=== PATIENT | female | born 1995 | race Caucasian/White ===

== ENCOUNTER 2024-10-25 09:36 | Outpatient (CLI) | payer MEDICAID, SELFPAY ==
--- OUTSIDE RECORDS SUMMARY | 2024-10-25 09:48 | XMS_ITS | Clinical Summary ---
Author Organization [facility] Address [address] [place] [address] Care Team Providers Care Jigger Artisan Name Role Phone Armand Morales MD Primary Care Provider [phone] Allergies No known active allergies Medications Vyvanse 30 MG capsule Take 1 capsule (30 mg) by mouth 1 (one) time each day in the morning. 11/30/2022 Active gabapentin (Neurontin) 100 MG capsule Take 1 capsule (100 mg) by mouth 3 (three) times a day for 28 days. 84 capsule 02/23/2023 Active methocarbamol (Robaxin) 500 MG tablet Take 1.5 tablets (750 mg) by mouth every 6 (six) hours if needed for muscle spasms for up to 10 days. 50 tablet 02/23/2023 Active Active Problems Problem Noted Date Diagnosed Date Femoral anteversion of right lower extremity Social History Tobacco Use Types Packs/Day Years Used Date Smoking Tobacco: Former Cigarettes Q uit: 2020 Passive Smoke Exposure: Never Smokeless Tobacco: Never Tobacco Cessation:Counseling Given: Not Answered Alcohol Use Standard Drinks/Week Comments Never 0 (1 standard drink = 0.6 oz pur e alcohol) PHQ-2 Answer Date Recorded Patient Health Questionnaire-2 Score 0 02/03/2023 CAGE ASSESSMENT Answer Date Recorded Cage unable to access Not on file 02/22/2023 Cage max number of drinks Not on file 2022 Cage Beverages a week Not on file 02/22/2023 Have you ever felt you should CUT down on your d rinking? 0 02/22/2023 Have you been ANNOYED by people criticizing your drinking? 0 02/22/2023 Have you felt GUILTY about your drinking? 0 02/22/2023 Have you had a drink first t waldemar in the morning (EYE-ECONOMIC ADVISER) to steady your nerves or to get rid of a hangover? 0 02/22/2023 CAGE Questionnaire Score 0 023 PHQ-2A Answer Date Recorded Patient Health Questionnaire-2 Score 0 02/03/2023 Comments No Sex and Gender Information Value Date Recorded Sex Assigned at Not on file Legal Sex Female 6:23 PM EDT Gender Identity Not on file Sexual Orientation Not on file Last Filed Vital Signs Vital Sign Reading Time Taken Comments Blood Pressure 107/68 08/18/2023 9:15 AM EDT Pulse 111 08/18/2023 9:15 AM EDT Temperature 36.7 C (98 F) 08/18/2023 9:15 AM EDT Respiratory Rate 16 02/23/2023 11:41 AM EDT Oxygen Saturation 95% 08/18/2023 9:15 AM EDT Inhaled Oxygen Concentration - - Weight 54.4 kg (120 lb) 08/18/2023 9:15 AM EDT Height 157.5 cm (5' 2 ) 08/18/2023 9:15 AM EDT Body Mass Index 21.95 08/18/2023 9:15 AM EDT Plan of Treatment Health Maintenance Due Date Last Done Comments [facility]-/Child/Adol SDOH Screenings 1994 [facility]-Varicella Vaccines (1 of 2 - 13+ 2-dose series) 11/09/2007 HPV Vaccines (1 - 3-dose series) 2009 [facility]- SDOH Screenings 2012 [facility]-Adult SDOH Screenings 2012 [facility]-DTaP,Tdap,and Td Vaccine s (1 - Tdap) 2013 [facility]-Hepatitis B Vaccines (1 of 3 - 19+ 3-dose series) 2013 [facility]-Pap Smear 11/09/2015 [id number] Vaccine (1 - 20 24-25 season) 2024 [facility]-Depression Screening 02/04/2024 02/03/2023 [facility]-Influenza Vaccine (Seaso n Ended) 2025 [facility]-Zoster Vaccines (1 of 2) 2044 [facility]-HIV Screening Completed 09/13/2019 [facility]-Hepatitis C Screening Completed 09/13/2019 [facility]-HIB Vaccines Aged Out No longer e ligible based on patient's age to complete this topic [facility]-Hepatitis A Vaccines Aged Out No longer eligible based on patient's age to complete this topic [facility]-IPV Vaccines Aged Out No longer e ligible based on patient's age to complete this topic [facility]-Pneumococcal Vaccine: Pediatrics (0 to 5 Years) and At-Risk Patients (6 to 49 Years) Aged Out No long er eligible based on patient's age to complete this topic [facility]-Rotavirus Vaccines Aged Out No lo nger eligible based on patient's age to complete this topic Medical Devices Implanted Type Area Draughtsman Device Identifier Shelf Expiration Date Model / Serial / Lot Nail Femoral Left [id number] - [id number] Implanted:Qty: 1 on 02/22/2023 by Ghulam Pulido MD at [facility] Right: [employer] ([facility])-[id number] 12/14/2023 [id number] / / [id number] Screw 5.0mm Ti T2 Lock Full Thrd 40mm - [id number] Implanted:Qty: 1 on 02/22/2023 by Ghulam Pulido MD at [facility] Right: [employer] ([facility])-[id number] 01/13/2027 [id number] / / [id number] Screw 5.0mm T2 Lock Full Thrd 45mm - [id number] Implanted:Qty: 1 on 02/22/2023 by Ghulam Pulido MD at [facility] Right: [employer] ([facility])-[id number] 05/15/2027 [id number] / / [id number] Screw 5.0mm Lock Full Thrd 32.5mm - [id number] Implanted:Qty: 1 on 02/22/2023 by Ghulam Pulido MD at [facility] Right: [employer] ([facility])-[id number] 01/13/2027 [id number] / / [id number] Screw T2 Locking 37.5mm - [id number] Implanted:Qty: 1 on 02/22/2023 by Ghulam Pulido MD at [facility] Right: [employer] ([employer])-[id number] 05/15/2027 [id number] / / [id number] Procedures Procedure Name Priority Date/Time Associated Diagnosis Comments HEPATITIS C ANTIBODY W/REFLEX TO HCV QUANT PCR Routine 09/13/2019 9:23 AM EDT HIV 1/2 ANTIBODY/ANTIGEN SCREEN WITH REFLEX TO HIV I/II DIFFERENTIATION Routine 09/13/2019 9:23 AM EDT from Last 3 Months or Most Recently Relevant to Health Maintenance Results * HIV 1 & 2 Antibody/Antigen Screen (09/13/2019 9:23 AM EDT) HIV 1 Result NONREACTIVE Screening for HIV 1 and 2 antibodies is NONREACTIVE. No confirmatory testing is required. SUNQUEST 09/13/2019 9:23 AM EDT 09/13/2019 1:05 PM EDT us Hilda Koehler MD LAB BLOOD ORDERABLES Final Re sult Performing Organization Address [facility] de Phone Number SUNQUEST * Hepatitis C Antibody (09/13/2019 9:23 AM EDT) Hepatitis C Antibody NEGATIVE Reference Range: Negative SUNQUEST 09/13/2019 9:23 AM EDT 09/13/2019 1:05 PM EDT us Hilda Koehler MD LAB BLOOD ORDERABLES Final Re sult SUNQUEST from Last 3 Months or Most Recently Relevant to Health Maintenance Advance Directives * Full Code (Latest Code Status on File) Date Activated Date Inactivated Comments 02/22/2023 1:00 PM 02/23/2023 5:05 PM Question Answer Comments Patient has decision-making capacity? Yes Care Teams Jigger Artisan Relationship Specialty Start Date End Date Armand Morales MD [address] [place] [address] PCP - General Internal Medicine 11/04/22
[2024-10-25 10:26] LABS: Basophils % 0.3 % (0.1-2.0); Eosinophils # 0.1 Kmm3 (0.0-0.4); Eosinophils % 1.4 % (0.1-12.0); Hematocrit 31.1 % (37.0-47.0); Hemoglobin 10.3 g/dL (12.2-16.2); Immature Granulocytes # 0.01 10^3uL; Immature Granulocytes % 0.1 %; Lymphocytes # 1.7 K/mm3 (0.7-4.5); Lymphocytes % 23.3 % (10-50); Mean Corpuscular HGB Conc 33.1 g/dL (31.8-35.4); Mean Corpuscular Hemoglobin 30.4 pg (27.0-31.2); Mean Corpuscular Volume 91.7 fl (81-99); Mean Platelet Volume 9.3 fl (7.4-10.4); Monocytes # 0.5 K/mm3 (0.1-1.0); Monocytes % 6.7 % (1.7-9.3); Neutrophils % 68.2 % (37.0-80.0); Nucleated Red Blood Cells # 0 10^3/uL; Nucleated Red Blood Cells % 0 %; Platelet Count 261 K/mm3 (142-424); Red Blood Count 3.39 M/mm3 (4.20-5.40); Red Cell Distribution Width 12.4 % (11.5-17.5); Red Cell Distribution Width-SD 41.8 fL; White Blood Count 7.3 K/mm3 (4.8-10.8)
[2024-10-25 11:32] LABS: HCG,Quantitative 64084 mIU/ml (0-5.42); HIV Combo NEGATIVE (Negative)
[2024-10-25 11:40] LABS: Hepatitis C Ab Qual. W/ RFX NEGATIVE (Negative)
[2024-10-26 05:09] LABS: Hepatitis B Surface Antigen Negative (Negative)
[2024-10-26 08:32] LABS: Progesterone 17.9 ng/mL (.)
[2024-10-26 09:33] LABS: Rubella Antibodies, IgG 4.99 index (Immune >0.99)
[2024-10-26 09:48] LABS: RPR W/RFX Titers Nonreactive (Nonreactive)
== END 2024-10-25 23:59 | disposition home or self-care (01) ==
LOC: LAB 09:37
PROVIDERS: PCP Internal Medicine Adolescent Medicine; Visit Provider Obstetrics & Gynecology
DX: Z34.81 Encounter for supervision of other normal pregnancy, first trimester (principal)
CPT/HCPCS: 36415; 84144; 84702; 85025; 86592; 86762; 86803; 86850; 87340; 87389

== ENCOUNTER 2025-01-10 12:51 | Outpatient (CLI) | payer MEDICAID, SELFPAY ==
--- OUTSIDE RECORDS SUMMARY | 2022-10-19 04:52 | XMS_ITS | Continuity of Care Document ---
Author Organization [facility] Address [address] [place] [address] Phone Care Team Providers Care Side Stitcher Name Role Phone Ollie MSN, MANAGER COMMUNITY RELATIONS, Lorenza Unavailable Unavai lable Allergies, Adverse Reactions, Alerts Substance Reaction Status Criticality NO KNOWN ALLERGIES Active No Inform ation Medications Medication Instructions [...] Location Reason(s) For Visit Diagnoses Date Provider [facility], [address] [place] [address], [facility], tel:[phone] [facility] No Information Ollie Britt. [address] [place], [place], [id number], . tel:[phone] [facility], [address] [place] [address], [facility], tel:[phone] HR[facility] JORGETHIANA new to establish (chief complaint) Alcohol abuse counseling and surveillance of alcoholicMajor depressive disorder, recurrent, mildGeneralized anxiety disorderEncounter for screening examination for other mental health and behavioral disordersEncounter for screening for diseases of the blood and blood-forming organs and certain disorders involving the immune mechanismADHD predominantly inattentive typeEncounter for screening for other disorder Ollie Britt. [address], [place], [id number], [place]. tel:[phone] Family History Family Member Type Diagnosis Age At Onset No Information Payers Payer name Insurance type Covered republican ID Linda quinonez(s) [id number] Social History Type Description Quantity Date Captured Comments Alcohol Use Details Unknown Caffeine Use Details Unknown Tobacco Use Status No Information Smoking Status No Information Sex Female Sexual Orientation Straight or heterosexual September Gender Identity Female Chief Complaint And Reason For Visit No Information Plan Of Treatment Date Type Action Status Goal Tobacco Use Cessation Counse wolfgang. Due on due Goal Tobacco Use Screening. Due o n due Goal Unhealthy drug use screening due Goal HIV screen. Due on due Goal CMP. Due on due Goal Obtain Height, Weight, and B PA. Due on due Goal CBC. Due on due Goal Generalized Anxi ety Disorder - 7 (TIFFANIE-7). Due on due Goal Diabetes screening. Due on due Goal Drug Abuse Screening Test (D AST-10). Due on due Goal TSH. Due on due Goal Influenza vaccine. Due on due Goal Depression screening. Due on due Goal Vitamin D. Due on due Goal Follow up Plan f or abnormal BMI (Less than 18.5, greater than 25). Due on due Goal PAP. Due on due Goal Vitamin B12. Due on 023 due Goal Hepatitis C Screening. Due o n due Goal TSH. Due on due Goal Diabetes screening. Due on due Goal Hepatitis C Screening. Due o n due Goal Drug Abuse Screening Test (D AST-10). Due on due Goal Vitamin B12. Due on 023 due Goal Influenza vaccine. Due on due Goal Obtain Height, Weight, and B PA. Due on due Goal CBC. Due on [...] on due Goal Vitamin D. Due on due Goal Unhealthy drug use screening due Goal Tobacco Use Screening. Due o n due Referral Referred To: [facility] Internal Medicine- Dr. Obrien Ordered: Referrals: Internal Medicine. [facility] Internal Medicine- Dr. Obrien. Location: [facility] Evaluate and treat Appointment date/timeframe: 10/13/2022 ordered History Of Present Illness Encounter Date Complaint History Of Prese nt Illness new to establish German is a 26 yo female here today to establish care. She reports she has not seen a doctor in over 5 years. Previously seen in [place], Dr. Pan. She lives here now. She [...] if she chooses.OBGYN- last pap- she is [id number] full term boyperiods regularDeclines control at this time. Does not use condomsHx of vaginal wartsno other reported complicationsPlanning a possible next summerUK records reviewed via the [facility] portal- no Pap on file.Seasonal allergies- taking otc generic allergy medicationcongested today x 3 days no feversraw throatFasting labs collected todayUA okUDS okKaspbety ok. reports hypoglycemic epidsodes in the past, [...]
--- OUTSIDE RECORDS SUMMARY | 2025-01-10 12:53 | XMS_ITS | Clinical Summary ---
Author Organization [facility] Address [address] [place] [address] Care Team Providers Care Handyperson Name Role Phone System, Provider Not In Primary Care Provider Un available Allergies No known active allergies Medications Etonogestrel (IMPLANON SC) Inject into the skin Active clotrimazole (LOTRIMIN) 1 % cream Apply topically 2 (two) times daily Apply to affected area bid 25 g 6 Active Active Problems No known active problems Social History Tobacco Use Types Packs/Day Years Used Date Smoking Tobacco: Never Assessed Comments No Sex and Gender Information Value Date Recorded Sex Assigned at Not on file Legal Sex Female 10:14 AM EDT Gender Identity Not on file Sexual Orientation Not on file Last Filed Vital Signs Vital Sign Reading Time Taken Comments Blood Pressure 116/64 12/08/2015 10:34 AM EDT Pulse 74 12/08/2015 10:34 AM EDT Temperature 36.4 C (97.6 F) 12/08/2015 10:34 AM EDT Respiratory Rate 18 12/08/2015 10:34 AM EDT Oxygen Saturation 99% 12/08/2015 10:34 AM EDT Inhaled Oxygen Concentration - - Weight 65.1 kg (143 lb 9.6 oz) 12/08/2015 10:34 AM EDT Height 157.5 cm (5' 2 ) 12/08/2015 10:34 AM EDT Body Mass Index 26.26 12/08/2015 10:34 AM EDT Plan of Treatment Health Maintenance Due Date Last Done Comments Hepatitis B (HepB) Vaccine ( 1 of 3 - 19+ 3-dose series) 2013 Tdap/Td Vaccine >11 yo (1 - Tdap) 2013 Cervical Cancer Screening 11/09/2015 HPV Vaccine (1 - 3-dose SCDM series) 2021 Annual SDOH Screening 05/16/2024 Influenza Vaccine (#1) 2025 Haemophilus Influenzae Type B (Hib) Vaccine Aged Out No longer eligible b ased on patient's age to complete this topic Hepatitis A (HepA) Vaccine Aged Out N o longer eligible based on patient's age to complete this topic Meningococcal ACWY Aged Out No longer eligible based on patient's age to complete this topic Pneumococcal Vaccines 6-49 yo Risk Aged Out No longer eligible based on patient's age to complete this topic Polio (IPV) Aged Out No longer eligi ble based on patient's age to complete this topic Rotavirus (RV) Vaccine Aged Out No lo nger eligible based on patient's age to complete this topic Insurance [facility] ERON RUIZ [place] [id number] [facility] Care Teams Handyperson Relationship Specialty Start Date End Date System, Provider Not In PCP - General 12/08/15
--- OUTSIDE RECORDS SUMMARY | 2025-01-10 12:53 | XMS_ITS | Clinical Summary ---
Author Organization Healthcare Address [address] [place] [address] Care Team Providers Care Hunting And Fishing Guide Name Role Phone Armand Morales MD Primary Care Provider [phone] Allergies No known active allergies Medications Vyvanse [...] drink first t waldemar in the morning (EYE-PHOTO MACHINE OPERATOR) to steady your nerves or to get [...] of 2 - 13+ 2-dose series) 11/09/2007 [facility]- SDOH Screenings 2012 [facility]-Adult SDOH Screenings 2012 [facility]-DTaP,Tdap,and Td Vaccine s (1 - Tdap) 2013 [facility]-Hepatitis B Vaccines (1 of 3 - 19+ 3-dose series) 2013 [facility]-Pap Smear 11/09/2015 HPV Vaccines (1 - 3-dose SCD M series) 2021 [id number]-[id number]-30 Vaccine (1 - 20 24-25 season) 2024 [facility]-Depression Screening 02/04/2024 02/03/2023 [facility]-Cervical Cancer Screening 2024 [facility]-HPV/Cotest 2024 [facility]-Influenza Vaccine (#1) 2025 [facility]-Zoster Vaccines (1 of 2) 2044 [...] this topic Medical Devices Implanted Type Area Principal Bioinformatics Specialist Device Identifier Shelf Expiration Date Model / Serial / Lot Nail Femoral Left [id number] - [id number] Implanted:Qty: 1 on 02/22/2023 by Ghulam Pulido MD at [facility] Right: Femur [employer] ([facility])-[id number] 12/14/2023 1828-0936S / / [id number] Screw 5.0mm Ti T2 Lock Full Thrd 40mm - [id number] Implanted:Qty: 1 on 02/22/2023 by Ghulam Pulido MD at [facility] Right: Femur [employer] ([facility])-[id number] 01/13/2027 1896-5040S / / [id number] Screw 5.0mm T2 Lock Full Thrd 45mm - [id number] Implanted:Qty: 1 on 02/22/2023 by Ghulam Pulido MD at [facility] Right: Femur [employer] ([facility])-[id number] 05/15/2027 1896-5045S / / [id number] Screw 5.0mm Lock Full Thrd 32.5mm - [id number] Implanted:Qty: 1 on 02/22/2023 by Ghulam Pulido MD at [facility] Right: Fem[employer] ([facility])-[id number] 01/13/2027 1896-5032S / / [id number] Screw T2 Locking 37.5mm - [id number] Implanted:Qty: 1 on 02/22/2023 by Ghulam Pulido MD at [facility] Right: Femur [employer] ([employer])-[id number] 8 05/15/2027 1896-5037S / / [id number] Procedures Procedure Name Priority Date/Time Associated Diagnosis [...] ORDERABLES Final Re sult Performing Organization Address [facility] de Phone Number SUNQUEST * Hepatitis C Antibody (09/13/2019 9:23 AM EDT) Hepatitis C Antibody NEGATIVE Reference Range: Negative SUNQUEST 09/13/2019 9:23 AM EDT 09/13/2019 1:05 PM EDT us Hilda Koehler MD LAB BLOOD ORDERABLES Final Re sult Performing Organization Address City/[facility] Co de Phone Number SUNQUEST from Last 3 Months or Most Recently Relevant to Health Maintenance Advance Directives * Full Code (Latest Code Status on File) Date Activated Date Inactivated Comments 02/22/2023 1:00 PM 02/23/2023 5:05 PM Question Answer Comments Patient has decision-making capacity? Yes Care Teams Hunting And Fishing Guide Relationship Specialty Start Date End Date Armand Morales MD [address] [place], [place] [address] PCP - General Internal Medicine 11/04/22
--- NOTE | 2025-01-10 13:00 | US_ITS ---
PROCEDURE: US OB /MATERNAL DETAIL CLINICAL INDICATION: schedule 20wk anatomy scan in 2wks COMPARISON: No exams were available for comparison FINDINGS: Transabdominal sonographic images of the pelvis were obtained. From her established due date she is 20 weeks 5 days. Single viable intrauterine gestation. Breech position. Placenta: Posteriorplacenta grade 1. There is an average amount of fluid. The cervix appears satisfactory. Closed and measuring 3.31 cm in length. Complete survey performed and was unremarkable on the submitted images as in PACS. No discrete anomalies identified on survey imaging by technologist. Active fetus. Three-vessel cord with satisfactory umbilical cord insertion. 4- chamber heart noted. Situs, aortic arch, LVOT, RVOT, three-vessel view appear normal. Survey of brain & ventricles Unremarkable. Cerebellum, thalamus, choroid plexus, cisterna magna appear normal. Face and neck survey unremarkable. Profile, nasion, lips and nose appeared normal. Diaphragm and chest views unremarkable. Abdomen: Both kidneys noted and unremarkable. Stomach and bladder noted and satisfactory. Spine: Survey of the spine satisfactory with no anomalies identified nor imaged. Cervical, thoracic, lower spine appear normal. Both arms and legs noted. Amniotic Fluid: Adequate. MVP 5.57 cm Measurements: Average ultrasound age 21weeks 1day. Estimated due date by ultrasound age 0105/22/2025. Estimated weight 390g BPD = 21weeks 0 days HC = 21weeks 1day AC = 21weeks 1day FL = 21weeks 0 days Growth Percentile= 59 Heart Rate = 153bpm Cerebellum = 20weeks 4days Humerus = 21weeks 6days HC/AC is 1.17 FL/BPD is 0.7 FL/AC is 0.22 IMPRESSION: 1. Viable fetus in the breech presentation with posterior placenta grade 1. 2. The fluid is within normal limits with an MVP 5.57 cm. 3. Anatomical scan appears normal. 4. biometry is consistent with the dates. Dictated by: Walter Kraus MD 01/10/2025 17:41 Walter Kraus MD in OV 01/10/2025 17:41
== END 2025-01-10 23:59 | disposition home or self-care (01) ==
LOC: RAD 12:52
PROVIDERS: PCP Internal Medicine Adolescent Medicine; Visit Provider Obstetrics & Gynecology
DX: O32.1XX0 Maternal care for breech presentation, not applicable or unspecified (principal); Z3A.20 20 weeks gestation of pregnancy
CPT/HCPCS: 76811

== ENCOUNTER 2025-03-18 09:25 | Outpatient (CLI) | payer MEDICAID, SELFPAY ==
[2025-03-18 11:11] LABS: Hematocrit 26.7 % (37.0-47.0); Hemoglobin 8.7 g/dL (12.2-16.2); Immature Granulocytes % 0.6 %; Mean Corpuscular HGB Conc 32.6 g/dL (31.8-35.4); Mean Corpuscular Hemoglobin 29.5 pg (27.0-31.2); Mean Corpuscular Volume 90.5 fl (81-99); Nucleated Red Blood Cells % 0 %; Platelet Count 220 K/mm3 (142-424); Red Blood Count 2.95 M/mm3 (4.20-5.40); Red Cell Distribution Width-SD 39.5 fL; White Blood Count 9.5 K/mm3 (4.8-10.8)
[2025-03-18] MEDS: RHO(D) IMMUNE GLOBULIN 1,500 UNIT (300MCG) SYRINGE 300 MCG IM (11:18)
[2025-03-18 11:22] VITALS: BP 111/61; PULSE 78; RESP 18; O2SAT 100
[2025-03-18 11:49] LABS: Glucose 1 Hour 129 mg/dL (74-100)
[2025-03-19 14:46] LABS: RPR W/RFX Titers Nonreactive (Nonreactive)
== END 2025-03-18 23:59 | disposition home or self-care (01) ==
PROVIDERS: PCP Internal Medicine Adolescent Medicine; Visit Provider Obstetrics & Gynecology
DX: Z34.83 Encounter for supervision of other normal pregnancy, third trimester (principal); Z67.91 Unspecified blood type, Rh negative
CPT/HCPCS: 36415; 82947; 85025; 86592; 96372; J2790

== ENCOUNTER 2025-03-20 11:24 | Outpatient (CLI) | payer MEDICAID, SELFPAY ==
--- OUTSIDE RECORDS SUMMARY | 2025-03-20 11:57 | XMS_ITS | Clinical Summary ---
Author Organization [facility] Address [address] [place] [address] Care Team Providers Care Director Of Critical Care Name Role Phone System, Provider Not In [...] patient's age to complete this topic Insurance [facility] ERON RUIZ [place] [id number] [facility] Care Teams Director Of Critical Care Relationship Specialty Start Date End Date System, Provider Not In PCP - General 12/08/15
--- OUTSIDE RECORDS SUMMARY | 2025-03-20 11:57 | XMS_ITS | Clinical Summary ---
Author Organization Healthcare Address [address] [place] [place] [address] Care Team Providers Care Manager Winter Name Role Phone Armand Morales MD Primary Care Provider [phone] Allergies No known active allergies Medications Vyvanse [...] drink first t waldemar in the morning (EYE-ENGINEER SECOND ASSISTANT) to steady your nerves or to get [...] (1 - 3-dose SCD M series) 2021 [facility]-Depression Screening 02/04/2024 02/03/2023 [facility]-Cervical Cancer Screening 2024 [facility]-HPV/Cotest 2024 RHC-SVXVK-07 Vaccine (1 - 20 24-25 season) 2025 [facility]-Influenza Vaccine (#1) 2025 [facility]Y-Zoster Vaccines (1 [...] this topic Medical Devices Implanted Type Area Attending Radiologist Device Identifier Shelf Expiration Date Model / Serial / Lot Nail Femoral Left [id number] - [id number] Implanted:Qty: 1 on 02/22/2023 by Ghulam Pulido MD at [facility] Right: Femur [employer] ([facility])-[id number] 8 12/14/2023 1828-0936S / / [id number] Screw 5.0mm Ti T2 Lock Full Thrd 40mm - [id number] Implanted:Qty: 1 on 02/22/2023 by Ghulam Pulido MD at [facility] Right: [employer] ([facility])-[id number] 8 01/13/2027 1896-5040S / / [id number] Screw 5.0mm T2 Lock Full Thrd 45mm - [id number] Implanted:Qty: 1 on 02/22/2023 by Ghulam Pulido MD at [facility] Right: [employer] ([facility])-[id number] 8 05/15/2027 1896-5045S / / [id number] Screw 5.0mm Lock Full Thrd 32.5mm - [id number] Implanted:Qty: 1 on 02/22/2023 by Ghulam Pulido MD at [facility] Right: [employer] ([facility])-[id number] 8 01/13/2027 1896-5032S / / [id number] Screw T2 Locking 37.5mm - [id number] Implanted:Qty: 1 on 02/22/2023 by Ghulam Pulido MD at [facility] Right: Femur [employer] ([employer])-[id number] 8 05/15/2027 1896-5037S / / [id number] Procedures Procedure Name Priority Date/Time Associated Diagnosis [...] ORDERABLES Final Re sult Performing Organization Address [facility] de Phone Number SUNQUEST * Hepatitis C Antibody (09/13/2019 9:23 AM EDT) Hepatitis C Antibody NEGATIVE Reference Range: Negative SUNQUEST 09/13/2019 9:23 AM EDT 09/13/2019 1:05 PM EDT us Hilda Koehler MD LAB BLOOD ORDERABLES Final Re sult Performing Organization Address City/[facility] Co de Phone Number SUNQUEST from Last 3 Months or Most Recently Relevant to Health Maintenance Advance Directives * Full Code (Latest Code Status on File) Date Activated Date Inactivated Comments 02/22/2023 1:00 PM 02/23/2023 5:05 PM Question Answer Comments Patient has decision-making capacity? Yes Care Teams Manager Winter Relationship Specialty Start Date End Date Armand Morales MD [address] [place], [place] [address] PCP - General Internal Medicine 11/04/22
[2025-03-20 12:54] LABS: Iron 57 ug/dL (37-170)
[2025-03-20 13:05] LABS: Total Iron Binding Capacity 568 ug/dL (265-497)
[2025-03-20 13:55] LABS: Ferritin 7.25 ng/ml (6.24-137)
[2025-03-20 14:06] LABS: Folate 7.00 ng/mL
[2025-03-20 14:09] LABS: Vitamin B12 442 pg/mL (239-931)
== END 2025-03-20 23:59 | disposition home or self-care (01) ==
LOC: LAB 11:24
PROVIDERS: PCP Internal Medicine Adolescent Medicine; Visit Provider Obstetrics & Gynecology
DX: O99.019 Anemia complicating pregnancy, unspecified trimester (principal); D64.9 Anemia, unspecified; Z3A.00 Weeks of gestation of pregnancy not specified
CPT/HCPCS: 36415; 82607; 82728; 82746; 83540; 83550

== ENCOUNTER 2025-03-25 12:59 | Outpatient (CLI) | payer MEDICAID, SELFPAY ==
--- NOTE | 2025-03-25 13:00 | US_ITS ---
PROCEDURE: US OB FOLLOW UP CLINICAL INDICATION: position COMPARISON: US US OB /MATERNAL DETAIL from 01/10/2025 FINDINGS: Transabdominal sonographic images of the pelvis were obtained. The following parameters are obtained: From her established due date she is 31weeks 2days Viable fetus in the cephalic presentation with a lateral posterior placenta grade 1. The cervix measures 2.29 cm. heart rate: 143bpm bpm. Average ultrasound age 32 weeks 6 days Estimated weight 1072 grams, 4 lb 2 oz BPD: 34weeks 4days, >98 percentile HC: 33weeks 4days, 76 percentile AC: 31weeks 4days, 56 percentile FL: 31weeks 3days, 39 percentile HC/AC: 1.1 FL/BPD: 0.7 FL/AC: 0.22 Growth percentile: 61 Amniotic fluid index: 11.33cm, MVP 5.8 cm. No obvious anomalies evident. profile seen, stomach, bladder, kidneys, three-vessel cord, four chamber heart appear normal. IMPRESSION: 1. Viable fetus in the cephalic presentation with the lateral posterior placenta grade 1-2. 2. The fluid is within normal limits with an amniotic fluid index 11.33 cm, MVP 5.8 cm. 3. There has been good interval growth with the fetus currently 61st percentile. 4. Limited anatomical scan appears normal. Dictated by: Walter Kraus MD 03/25/2025 13:49 Walter Kraus MD in OV 03/25/2025 13:49
== END 2025-03-25 23:59 | disposition home or self-care (01) ==
LOC: RAD 13:00
PROVIDERS: PCP Internal Medicine Adolescent Medicine; Visit Provider Obstetrics & Gynecology
DX: O32.1XX0 Maternal care for breech presentation, not applicable or unspecified (principal); Z3A.31 31 weeks gestation of pregnancy
CPT/HCPCS: 76816

== ENCOUNTER 2025-04-30 10:01 | Outpatient (CLI) | payer MEDICAID, SELFPAY ==
--- OUTSIDE RECORDS SUMMARY | 2025-04-30 10:26 | XMS_ITS | Clinical Summary ---
Author Organization [facility] Address [address] [place] [address] Care Team Providers Care Transitions Manager Name Role Phone System, Provider Not In [...] patient's age to complete this topic Insurance [facility] ERON RUIZ [place] [id number] [facility] Care Teams Transitions Manager Relationship Specialty Start Date End Date System, Provider Not In PCP - General 12/08/15
--- OUTSIDE RECORDS SUMMARY | 2025-04-30 10:26 | XMS_ITS | Clinical Summary ---
Author Organization Healthcare Address [address] [place] [address] Care Team Providers Care Inside Finisher Name Role Phone Armand Morales MD Primary Care Provider [phone] Allergies No known active allergies Medications Vyvanse [...] Years Used Date Smoking Tobacco: Former Cigarettes 0 Q uit: 2020 Passive Smoke Exposure: Never [...] drink first t waldemar in the morning (EYE-DINKEY OPERATOR SLAG) to steady your nerves or to get [...] Health Maintenance Due Date Last Done Comments [facility]-Infant/Child/Adol SDOH Screenings 1994 [facility]-Varicella Vaccines (1 of 2 - 13+ 2-dose series) 11/09/2007 [facility]- SDOH Screenings 2012 [facility]-Adult SDOH Screenings 2012 [facility]-DTaP,Tdap,and Td Vaccine s (1 - Tdap) 2013 [facility]-Hepatitis B Vaccines (1 of 3 - 19+ 3-dose series) 2013 [facility]-Pneumococcal Vaccine: Pediatrics (0 to 5 Years) and At-Risk Patients (6 to 49 Years) (1 of 2 - PCV) 2013 [facility]-Pap Smear 11/09/2015 [facility]-Depression Screening 02/04/2024 02/03/2023 [facility]-Cervical Cancer Screening 2024 [facility]Y-HPV/Cotest 2024 VUN-TUPKL-78 Vaccine (1 - 20 season) 2025 [facility]-Influenza Vaccine (#1) 2025 [facility]Y-Zoster Vaccines (1 of 2) 2044 [facility]Y-HIV Screening Completed 09/13/2019 [facility]-Hepatitis C Screening Completed 09/13/2019 HPV Vaccines (No Doses Required) Completed [facility]Y-HIB Vaccines Aged Out No longer e [...] this topic Medical Devices Implanted Type Area Vest Front Presser Device Identifier Shelf Expiration Date Model / Serial / Lot Nail Femoral Left [id number] - [id number] Implanted:Qty: 1 on 02/22/2023 by Ghulam Pulido MD at [facility] Right: Femur [employer] ([facility])-[id number] 8 12/14/2023 1828-0936S / / [id number] Screw 5.0mm Ti T2 Lock Full Thrd 40mm - [id number] Implanted:Qty: 1 on 02/22/2023 by Ghulam Pulido MD at [facility] Right: Femur [employer] ([facility])-[id number] 8 01/13/2027 1896-5040S / / [id number] Screw 5.0mm T2 Lock Full Thrd 45mm - [id number] Implanted:Qty: 1 on 02/22/2023 by Ghulam Pulido MD at [facility] Right: Fem[employer] ([facility])-[id number] 8 05/15/2027 1896-5045S / / [id number] Screw 5.0mm Lock Full Thrd 32.5mm - [id number] Implanted:Qty: 1 on 02/22/2023 by Ghulam Pulido MD at [facility] Right: Femur [employer] ([facility])-[id number] 8 01/13/2027 1896-5032S / / [id number] Screw T2 Locking 37.5mm - [id number] Implanted:Qty: 1 on 02/22/2023 by Ghulam Pulido MD at [facility] Right: Femur [employer] ([employer])-[id number] 8 05/15/2027 1896-5037S / / [id number] Procedures Procedure Name Priority Date/Time Associated Diagnosis [...] ORDERABLES Final Re sult Performing Organization Address [facility] Co de Phone Number SUNQUEST * Hepatitis C [...] Patient has decision-making capacity? Yes Care Teams Inside Finisher Relationship Specialty Start Date End Date Armand Morales MD [address] [place], [place] [address] PCP - General Internal Medicine 11/04/22
[2025-04-30] MEDS: IRON SUCROSE COMPLEX 200 MG in 0.9 % SODIUM CHLORIDE 100 ML 220 MG IV (10:40)
[2025-04-30 10:42] VITALS: BP 96/57; PULSE 72; RESP 18; O2SAT 99
[2025-04-30 11:10] VITALS: BP 99/64; PULSE 70
[2025-04-30] MEDS: SODIUM CHLORIDE 0.9% 10ML FLUSH SYRINGE 10 ML IV (11:10)
== END 2025-04-30 23:59 | disposition home or self-care (01) ==
LOC: INF 10:01
PROVIDERS: PCP Internal Medicine Adolescent Medicine; Visit Provider Internal Medicine
DX: O99.019 Anemia complicating pregnancy, unspecified trimester (principal); Z3A.00 Weeks of gestation of pregnancy not specified
CPT/HCPCS: 96365; J1756

== ENCOUNTER 2025-05-03 11:50 | Outpatient (CLI) | payer MEDICAID, SELFPAY ==
--- OUTSIDE RECORDS SUMMARY | 2025-05-04 09:33 | XMS_ITS | Clinical Summary ---
Author Organization [facility] [facility] Address [address] [place] [address] Care Team Providers Care Shift Coordinator Name Role Phone Pcp, No Primary Care Provider [phone] Allergies No known active allergies Medications No known medications Social History Tobacco Use Types Packs/Day Years Used Date Smoking Tobacco: Former Cigarettes Smokeless Tobacco: Never Tobacco Cessation:Counseling Given: No Alcohol Use Standard Drinks/Week Comments Not Asked 0 (1 standard drink = 0.6 oz pur e alcohol) Comments No Sex and Gender Information Value Date Recorded Sex Assigned at Not on file Legal Sex Female 9:46 AM EST Gender Identity Not on file Sexual Orientation Not on file Last Filed Vital Signs Vital Sign Reading Time Taken Comments Blood Pressure 120/80 06/28/2022 2:39 PM EST Pulse 78 06/28/2022 2:39 PM EST Temperature 36.8 C (98.2 F) 06/28/2022 2:39 PM EST Respiratory Rate 20 06/28/2022 2:39 PM EST Oxygen Saturation 99% 06/28/2022 2:39 PM EST Inhaled Oxygen Concentration - - Weight 62.1 kg (137 lb) 06/28/2022 2:39 PM EST Height 157.5 cm (5' 2 ) 06/28/2022 2:39 PM EST Body Mass Index 25.06 06/28/2022 2:39 PM EST Plan of Treatment Health Maintenance Due Date Last Done Comments Depression: Screening Annual ly using PHQ-2/9 in Adults 18 yrs or above (or HM Modifier)([facility]) 2012 Hepatitis C Virus Infection in Adolescents and Adults: Screening (or Modifier) ([facility]) 2012 SDOH Screening Reminder: Dinora urias for all adults ([facility]) 2012 Tobacco Smoking Cessation: i n Adults excluding Women: Behavioral and Pharmacotherapy Interventions ([facility]) 2012 DTaP/Tdap/Td Vaccines ([facility]) (1 - Tdap) 2013 Cervical Cancer Screenin 1-65 yrs of age (or Modifier) 11/09/2015 Cervical Cancer Screening: P ap every 3 yrs pts age 21-65 11/09/2015 Cervical Cancer: Pap Screeni ng with Modifier timing ([facility] ) 11/09/2015 Cervical Cancer: hrHPV alone or with cotesting Pap for Pts 30-65yrs screening every 5yrs ([facility] ) 11/09/2015 Flu Vaccination: Yearly for ages 18mos through 64 years (or Modifier)([facility] ) 12/14/2024 COVID-19 Vaccine Screening: Initial Series and Booster Status ([facility]) ( - 2024- season) 2025 Zoster/Shingles Vaccine Seri es Screening: Adults aged 18+ yrs (or HM Modifiers)([facility] ) (1 of 2) 2044 Pneumococcal Vaccination Scr eening: Pts 0-19 & 19-49 yrs of age ([facility] ) Aged Out No longer eligible based on patient's age to complete this topic Medical Devices Not on file Insurance [facility] Care Teams Shift Coordinator Relationship Specialty Start Date End Date Pcp, Maame PCP - General Family Medicine 04/16/22
--- OUTSIDE RECORDS SUMMARY | 2025-05-04 09:33 | XMS_ITS | Clinical Summary ---
Author Organization [facility] Address [address] [place] [address] Care Team Providers Care Client Manager Large Law Name Role Phone System, Provider Not In [...] patient's age to complete this topic Insurance [facility] ERON RUIZ [place] [id number] [facility] Care Teams Client Manager Large Law Relationship Specialty Start Date End Date System, Provider Not In PCP - General 12/08/15
--- OUTSIDE RECORDS SUMMARY | 2025-05-04 09:34 | XMS_ITS | Clinical Summary ---
Author Organization Healthcare Address [address] [place] [address] Care Team Providers Care Sail Repair Person Name Role Phone Armand Morales MD Primary Care Provider [phone] Allergies No known active allergies Medications Vyvanse [...] drink first t waldemar in the morning (EYE-TOE LINING CLOSER) to steady your nerves or to get [...] 02/03/2023 [facility]-Cervical Cancer Screening 2024 [facility]Y-HPV/Cotest 2024 NMD-LGRVA-17 Vaccine (1 - 20 season) 2025 [facility]Y-Influenza [...] this topic Medical Devices Implanted Type Area Wheel Cleaner Device Identifier Shelf Expiration Date Model / Serial / Lot Nail Femoral Left [id number] - [id number] Implanted:Qty: 1 on 02/22/2023 by Ghulam Pulido MD at [facility] Right: Femur [employer] ([facility])-[id number] 8 12/14/2023 1828-0936S / / [id number] Screw 5.0mm Ti T2 Lock Full Thrd 40mm - [id number] Implanted:Qty: 1 on 02/22/2023 by Ghulam Pulido MD at [facility] Right: [employer] ([facility])-[id number] 8 01/13/2027 1896-5040S / / [id number] Screw 5.0mm T2 Lock Full Thrd 45mm - [id number] Implanted:Qty: 1 on 02/22/2023 by Ghulam Pulido MD at [facility] Right: [employer] ([facility])-[id number] 8 05/15/2027 1896-5045S / / [id number] Screw 5.0mm Lock Full Thrd 32.5mm - [id number] Implanted:Qty: 1 on 02/22/2023 by Ghulam Pulido MD at [facility] Right: [employer] ([facility])-[id number] 8 01/13/2027 1896-5032S / / [id number] Screw T2 Locking 37.5mm - [id number] Implanted:Qty: 1 on 02/22/2023 by Ghulam Pulido MD at [facility] Right: [employer] ([employer])-[id number] 8 05/15/2027 1896-5037S / / [id number] Procedures Procedure Name Priority Date/Time Associated Diagnosis [...] ORDERABLES Final Re sult Performing Organization Address [facility] Co de Phone Number SUNQUEST * Hepatitis [...] Patient has decision-making capacity? Yes Care Teams Sail Repair Person Relationship Specialty Start Date End Date Armand Morales MD [address] [place], [place] [address] PCP - General Internal Medicine 11/04/22
== END 2025-05-03 23:59 | disposition home or self-care (01) ==
LOC: LAB.DROPOF 05-04 09:32
PROVIDERS: PCP Internal Medicine Adolescent Medicine; Visit Provider Obstetrics & Gynecology
DX: Z34.93 Encounter for supervision of normal pregnancy, unspecified, third trimester (principal)
CPT/HCPCS: 86403

== ENCOUNTER 2025-05-07 09:48 | Outpatient (CLI) | payer MEDICAID, SELFPAY ==
--- OUTSIDE RECORDS SUMMARY | 2022-10-19 03:52 | XMS_ITS | Continuity of Care Document ---
Author Organization [facility] Address [address] [place] [address] Phone Care Team Providers Care Teacher Selection Specialist Name Role Phone Ollie MSN, BRICK SETTER OPERATOR, Lorenza Unavailable Unavai lable Allergies, Adverse Reactions, Alerts Substance Reaction Status Criticality No Known Allergies Active No Inform ation Medications Medication Instructions Dosage Effective Dates (start - stop) Status Comments Flonase Allergy Relief 50 mcg/actuation nasal spray,suspension spray 1 - 2 spray by intranasal route every day in each nostril as needed 50-100 MCG - Active cetirizine 10 mg tablet take 1 tablet by oral route every day 10 MG - Active Advance Directives Directive Yes / No Effective Date File Name No Information Encounters Encounter Description Practice Location Reason(s) For Visit Diagnoses Date Provider [facility], [address] [place] [address], [facility], tel:[phone] [place] No Information Ollie Britt. [address] [place], [place], [id number], . tel:[phone] [facility], [address] [place] [address], [facility], tel:[phone] [facility] JORGET[facility]NA new to establish (chief complaint) Alcohol abuse counseling and surveillance of alcoholicMajor depressive disorder, recurrent, mildGeneralized anxiety disorderEncounter for screening examination for other mental health and behavioral disordersEncounter for screening for diseases of the blood and blood-forming organs and certain disorders involving the immune mechanismADHD predominantly inattentive typeEncounter for screening for other disorder Ollie Lorenza. [address] [place], [place], [id number], [place]. tel:[phone] Family History Family Member Type Diagnosis Age At Onset No Information Payers Payer name Insurance type Covered libertarian ID Authoriza tion(s) No Information Social History Type Description Quantity Date Captured Comments Alcohol Use Details Unknown Caffeine Use Details Unknown Tobacco Use Status No Information Smoking Status No Information Sex Female Sexual Orientation Straight or heterosexual September Gender Identity Female Chief Complaint And Reason For Visit No Information Plan Of Treatment Date Type Action Status Goal Follow up Plan f or abnormal BMI (Less than 18.5, greater than 25). Due on due Goal Vitamin B12. Due on 023 due Goal Obtain Height, Weight, and B KS. Due on due Goal Hepatitis C Screening. Due o n due Goal Unhealthy drug use screening due Goal Influenza vaccine. Due on due Goal Tobacco Use Cessation Counse ling. Due on due Goal CMP. Due on due Goal Generalized Anxi ety Disorder - 7 (TIFFANIE-7). Due on due Goal Drug Abuse Screening Test (D AST-10). Due on due Goal HIV screen. Due on due Goal TSH. Due on due Goal CBC. Due on due Goal Diabetes screening. Due on due Goal Tobacco Use Screening. Due o n due Goal Vitamin D. Due on 3 due Goal PAP. Due on due Goal Depression screening. Due on due Goal TSH. Due on due Goal Diabetes screening. Due on due Goal Hepatitis C Screening. Due o n due Goal Drug Abuse Screening Test (D AST-10). Due on due Goal Vitamin B12. Due on 023 due Goal Influenza vaccine. Due on due Goal Obtain Height, Weight, and B KS. Due on due Goal CBC. Due on due Goal HIV screen. Due on 23 due Goal Generalized Anxi ety Disorder - 7 (TIFFANIE-7). Due on due Goal Follow up Plan f or abnormal BMI (Less than 18.5, greater than 25). Due on due Goal Tobacco Use Cessation Counse ling. Due on due Goal CMP. Due on due Goal PAP. Due on due Goal Depression screening. Due on due Goal Vitamin D. Due on 3 due Goal Unhealthy drug use screening due Goal Tobacco Use Screening. Due o n due Referral Referred To: [facility] Internal Medicine- Dr. Obrien Ordered: Referrals: Internal Medicine. [facility] Internal Medicine- Dr. Obrien. Location: [facility] [place] Evaluate and treat Appointment date/timeframe: 10/13/2022 ordered History Of Present Illness Encounter Date Complaint History Of Prese nt Illness new to establish German is a 26 yo female here today to establish care. She reports she has not seen a doctor in over 5 years. Previously seen in [place], Dr. Pan. She lives here now. She states that she is overall healthy. Is interested in getting back on ADHD medications. ( I am unable to provide this service-pt informed in office today) She also states she has major depression filled with many highs and lows. She thinks she may be bipolar- runs in family, but never personally diagnosed. She has been on medications in the past- but escitalopram is the only one she can remember. [facility] show in 2019 amitriptyline and vyvance 20 mg. She stopped taking all meds because I don't want to take depression medicine. and felt it did not help. Anxiety scores today were 18, and depression 19. Hx of post depression- states that shortly after the of her son (age 2) she felt angry and thought she wanted to hurt him, but did not. She was able to control it. Currently relationship with son is good. He is in office with her today, plays, seems happy, calm. She states that she would be willing to try medication, but not depression medication. She currently sees a counselor via telehealth- and is able to get psychiatric medication management there if she chooses.OBGYN- last pap- she is [id number] full term boyperiods regularDeclines control at this time. Does not use condomsHx of vaginal wartsno other reported complicationsPlanning a possible next summerUK records reviewed via the [facility] portal- no Pap on file.Seasonal allergies- taking otc generic allergy medicationcongested today x 3 days no feversraw throatFasting labs collected todayUA okUDS okKasper ok. reports hypoglycemic epidsodes in the past, but has not occured for yearsmanaged by dietReports Hx of Covid at time of , but she does not believe she has itDeclines covid nad flu vaccinesHas never been vacinated for covid- does not trust the shotCurrently Vapes occassionallyFormer smoker 2 ppd 7 yearsHx of recreational drug use- none in past 2 yearsOccasional/social ETOH Instructions Date Instruction Additional Infor carleen Discussed stress red uction techniques. Take medications as prescribed. Limit caffeine and nicotine. Try to follow a set sleep schedule. Get daily moderate exercise if able to tolerate. Related to Generalized anxiety disorder Take medications as prescribed. Follow a sleep schedule. Try to engage in 30 minutes of moderate activity daily if tolerated, as exercise has been shown to improve depression symptoms Related to Major depressive disorder, recurrent, mild Assessments Type Assessment Date No Information
--- OUTSIDE RECORDS SUMMARY | 2025-05-07 09:51 | XMS_ITS | Clinical Summary ---
Author Organization [facility] Address [address] [place] [address] Care Team Providers Care Hub Cutter Name Role Phone System, Provider Not In [...] patient's age to complete this topic Insurance [facility] ERON RUIZ [place] [id number] [facility] Care Teams Hub Cutter Relationship Specialty Start Date End Date System, Provider Not In PCP - General 12/08/15
--- OUTSIDE RECORDS SUMMARY | 2025-05-07 09:51 | XMS_ITS | Clinical Summary ---
Author Organization Healthcare Address [address] [place] [address] Care Team Providers Care Career Resource Specialist Name Role Phone Armand Morales MD Primary Care Provider [phone] Allergies No known active allergies Medications Vyvanse [...] drink first t waldemar in the morning (EYE-WELDING MACHINE OPERATOR ULTRASONIC) to steady your nerves or to get [...] 02/03/2023 [facility]-Cervical Cancer Screening 2024 [facility]Y-HPV/Cotest 2024 VEF-SUQHH-80 Vaccine ( season) 2025 [facility]-Influenza Vaccine (#1) 2025 [facility]Y-Zoster [...] this topic Medical Devices Implanted Type Area Visual Lead Device Identifier Shelf Expiration Date Model / Serial / Lot Nail Femoral Left [id number] - [id number] Implanted:Qty: 1 on 02/22/2023 by Ghulam Pulido MD at [facility] Right: [employer] ([facility])-[id number] 12/14/2023 1828-0936S / / [id number] Screw 5.0mm Ti T2 Lock Full Thrd 40mm - [id number] Implanted:Qty: 1 on 02/22/2023 by Ghulam Pulido MD at [facility] Right: [employer] ([facility])-[id number] 8 01/13/2027 1896-5040S / / [id number] Screw 5.0mm T2 Lock Full Thrd 45mm - [id number] Implanted:Qty: 1 on 02/22/2023 by Ghulam Pulido MD at [facility] Right: [employer] ([facility])-[id number] 8 05/15/2027 1896-5045S / / [id number] Screw 5.0mm Lock Full Thrd 32.5mm - [id number] Implanted:Qty: 1 on 02/22/2023 by Ghulam Pulido MD at [facility] Right: [employer] ([facility])-[id number] 8 01/13/2027 1896-5032S / / [id number] Screw T2 Locking 37.5mm - [id number] Implanted:Qty: 1 on 02/22/2023 by Ghulam Pulido MD at [facility] Right: [employer] ([employer])-[id number] 8 05/15/2027 1896-5037S / / [id number] Procedures Procedure Name Priority Date/Time Associated Diagnosis [...] ORDERABLES Final Re sult Performing Organization Address [facility] Co de Phone Number SUNQUEST [...] Patient has decision-making capacity? Yes Care Teams Career Resource Specialist Relationship Specialty Start Date End Date Armand Morales MD [facility] [id number] PCP - General Internal Medicine 11/04/22
--- OUTSIDE RECORDS SUMMARY | 2025-05-07 09:51 | XMS_ITS | Clinical Summary ---
Author Organization [facility] [facility] Address [address] [place] [address] Care Team Providers Care Director Of Strategic Alliances Name Role Phone Pcp, No Primary Care Provider Allergies No known active allergies Medications No [...] Adults 18 yrs or above (or HM Modifier)([facility]) 2012 Hepatitis C Virus Infection in Adolescents and Adults: Screening (or Modifier) ([facility]) 2012 SDOH Screening Reminder: Dinora urias for all adults ([facility]) 2012 Tobacco Smoking Cessation: i n Adults excluding Women: Behavioral and Pharmacotherapy Interventions ([facility]) 2012 DTaP/Tdap/Td Vaccines ([facility]) (1 - Tdap) 2013 Cervical [...] Vaccine Screening: Initial Series and Booster Status ([facility]) ( - 2024- season) 2025 Zoster/Shingles Vaccine Seri es Screening: Adults aged 18+ yrs (or HM Modifiers)([facility] ) (1 of 2) 2044 Pneumococcal Vaccination Scr eening: Pts 0-19 & 19-49 yrs of age ([facility] ) Aged Out No longer eligible based on patient's age to complete this topic Medical Devices Not on file Insurance [facility] Care Teams Director Of Strategic Alliances Relationship Specialty Start Date End Date Pcp, Maame PCP - General Family Medicine 04/16/22
[2025-05-07] MEDS: IRON SUCROSE COMPLEX 200 MG in 0.9 % SODIUM CHLORIDE 100 ML 220 MG IV (10:02)
[2025-05-07] MEDS: SODIUM CHLORIDE 0.9% 10ML FLUSH SYRINGE 10 ML IV (10:04)
[2025-05-07 10:16] VITALS: BP 123/57; PULSE 74; RESP 20; O2SAT 99
[2025-05-07 11:00] VITALS: BP 122/64; PULSE 70
== END 2025-05-07 23:59 | disposition home or self-care (01) ==
LOC: INF 09:50
PROVIDERS: PCP Internal Medicine Adolescent Medicine; Visit Provider Obstetrics & Gynecology
DX: O99.019 Anemia complicating pregnancy, unspecified trimester (principal); Z3A.00 Weeks of gestation of pregnancy not specified
CPT/HCPCS: 96365; J1756

== ENCOUNTER 2025-05-14 09:54 | Outpatient (CLI) | payer MEDICAID, SELFPAY ==
--- OUTSIDE RECORDS SUMMARY | 2025-05-14 10:06 | XMS_ITS | Clinical Summary ---
Author Organization Healthcare Address [address] [place] [address] Care Team Providers Care Tourist Camp Attendant Name Role Phone Armand Morales MD Primary Care Provider [phone] Allergies No known active allergies Medications Vyvanse [...] drink first t waldemar in the morning (EYE-VOLTAGE TESTER) to steady your nerves or to get [...] 02/03/2023 [facility]-Cervical Cancer Screening 2024 [facility]-HPV/Cotest 2024 [id number] Vaccine ( season) 2025 [facility]-Influenza Vaccine (#1) [...] this topic Medical Devices Implanted Type Area Board Filler Device Identifier Shelf Expiration Date Model / Serial / Lot Nail Femoral Left [id number] - [id number] Implanted:Qty: 1 on 02/22/2023 by Ghulam Pulido MD at [facility] Right: [employer] ([facility])-[id number] 12/14/2023 1828-0936S / / [id number] Screw 5.0mm Ti T2 Lock Full Thrd 40mm - [id number] Implanted:Qty: 1 on 02/22/2023 by Ghulam Pulido MD at [facility] Right: [employer] ([facility])-[id number] 01/13/2027 1896-5040S / / [id number] Screw 5.0mm T2 Lock Full Thrd 45mm - [id number] Implanted:Qty: 1 on 02/22/2023 by Ghulam Pulido MD at [facility] Right: [employer] ([facility])-[id number] 05/15/2027 1896-5045S / / [id number] Screw 5.0mm Lock Full Thrd 32.5mm - [id number] Implanted:Qty: 1 on 02/22/2023 by Ghulam Pulido MD at [facility] Right: [employer] ([facility])-[id number] 01/13/2027 1896-5032S / / [id number] Screw T2 Locking 37.5mm - [id number] Implanted:Qty: 1 on 02/22/2023 by Ghulam Pulido MD at [facility] Right: [employer] ([employer])-[id number] 05/15/2027 1896-5037S / / [id number] Procedures Procedure Name Priority Date/Time Associated Diagnosis [...] ORDERABLES Final Re sult Performing Organization Address [facility] Co de Phone Number SUNQUEST * [...] Patient has decision-making capacity? Yes Care Teams Tourist Camp Attendant Relationship Specialty Start Date End Date Armand Morales MD [facility] [id number] PCP - General Internal Medicine 11/04/22
--- OUTSIDE RECORDS SUMMARY | 2025-05-14 10:06 | XMS_ITS | Clinical Summary ---
Author Organization [facility] Address [address] [place] [address] Care Team Providers Care Section Hand Helper Name Role Phone System, Provider Not In [...] - Tdap) 2013 Cervical Cancer Screening 11/09/2015 Annual SDOH Screening 05/16/2024 Influenza Vaccine (#1) 2025 HPV Vaccine (No Doses Required) Completed Haemophilus Influenzae Type B (Hib) Vaccine Aged [...] patient's age to complete this topic Insurance [facility] Care Teams Section Hand Helper Relationship Specialty Start Date End Date System, Provider Not In PCP - General 12/08/15
[2025-05-14] MEDS: IRON SUCROSE COMPLEX 200 MG in 0.9 % SODIUM CHLORIDE 100 ML 220 MG IV (10:13)
[2025-05-14 10:30] VITALS: BP 128/64; PULSE 84; RESP 20; TEMP 37.1; O2SAT 97
[2025-05-14 11:04] VITALS: BP 110/52; PULSE 72; RESP 20; O2SAT 99
== END 2025-05-14 11:04 | disposition home or self-care (01) ==
PROVIDERS: PCP Internal Medicine Adolescent Medicine; Visit Provider Obstetrics & Gynecology
DX: O99.019 Anemia complicating pregnancy, unspecified trimester (principal); D64.9 Anemia, unspecified; Z3A.00 Weeks of gestation of pregnancy not specified
CPT/HCPCS: 96365; J1756

== ENCOUNTER 2025-05-14 12:04 | Outpatient (CLI) | payer MEDICAID, SELFPAY ==
--- OUTSIDE RECORDS SUMMARY | 2025-05-14 12:07 | XMS_ITS | Clinical Summary ---
Author Organization [facility] lin Address [address] [place] [address] Care Team Providers Care Flour Inspector Name Role Phone Pcp, No Primary Care Provider [phone] Allergies No known active allergies Medications No [...] Adults 18 yrs or above (or HM Modifier)([facility]) 2012 Hepatitis C Virus Infection in Adolescents and Adults: Screening (or Modifier) ([facility]) 2012 SDOH Screening Reminder: Dinora urias for all adults ([facility]) 2012 Tobacco Smoking Cessation: i n Adults excluding Women: Behavioral and Pharmacotherapy Interventions ([facility]) 2012 DTaP/Tdap/Td Vaccines ([facility]) (1 - Tdap) 2013 Cervical Cancer Screenin [...] Vaccine Screening: Initial Series and Booster Status ([facility]) ( - 2024- season) 2025 Zoster/Shingles Vaccine Seri es Screening: Adults aged 18+ yrs (or HM Modifiers)([facility] ) (1 of 2) 2044 Pneumococcal Vaccination Scr eening: Pts 0-19 & 19-49 yrs of age ([facility] ) Aged Out No longer eligible based on patient's age to complete this topic Medical Devices Not on file Insurance [facility] Care Teams Flour Inspector Relationship Specialty Start Date End Date Pcp, Maame PCP - General Family Medicine 04/16/22
--- OUTSIDE RECORDS SUMMARY | 2025-05-14 12:07 | XMS_ITS | Clinical Summary ---
Author Organization Healthcare Address [address] [place] [address] Care Team Providers Care Director Of Land Acquisition Name Role Phone Armand Morales MD Primary Care Provider [phone] Allergies No known active allergies Medications Vyvanse [...] drink first t waldemar in the morning (EYE-DEMO COORDINATOR) to steady your nerves or to get [...] 02/03/2023 [facility]-Cervical Cancer Screening 2024 [facility]-HPV/Cotest 2024 [id number] Vaccine ( season) 2025 [facility]-Influenza Vaccine (#1) [...] this topic Medical Devices Implanted Type Area Operations Associate Device Identifier Shelf Expiration Date Model / Serial / Lot Nail Femoral Left [id number] - [id number] Implanted:Qty: 1 on 02/22/2023 by Ghulam Pulido MD at [facility] Right: [employer] ([facility])-[id number] 8 12/14/2023 1828-0936S / / [id number] Screw 5.0mm Ti T2 Lock Full Thrd 40mm - [id number] Implanted:Qty: 1 on 02/22/2023 by Ghulam Pulido MD at [facility] Right: [employer] ([facility])-[id number] 8 01/13/2027 1896-5040S / / [id number] Screw 5.0mm T2 Lock Full Thrd 45mm - [id number] Implanted:Qty: 1 on 02/22/2023 by Ghulam Pulido MD at [facility] Right: [employer] ([facility])-[id number] 8 05/15/2027 1896-5045S / / [id number] Screw 5.0mm Lock Full Thrd 32.5mm - [id number] Implanted:Qty: 1 on 02/22/2023 by Ghulam Pulido MD at [facility] Right: [employer] ([facility])-[id number] 8 01/13/2027 1896-5032S / / [id number] Screw T2 Locking 37.5mm - [id number] Implanted:Qty: 1 on 02/22/2023 by Ghulam Pulido MD at [facility] Right: [employer] ([employer])-[id number] 8 05/15/2027 1896-5037S / / [id number] Procedures Procedure Name Priority Date/Time Associated Diagnosis [...] ORDERABLES Final Re sult Performing Organization Address [facility] Co de Phone Number SUNQUEST [...] Patient has decision-making capacity? Yes Care Teams Director Of Land Acquisition Relationship Specialty Start Date End Date Armand Morales MD [facility] [id number] PCP - General Internal Medicine 11/04/22
--- OUTSIDE RECORDS SUMMARY | 2025-05-14 12:07 | XMS_ITS | Clinical Summary ---
Author Organization [facility] Address [address] [place] [address] Care Team Providers Care Funeral Service Manager Name Role Phone System, Provider Not [...] patient's age to complete this topic Insurance [facility] Care Teams Funeral Service Manager Relationship Specialty Start Date End Date System, Provider Not In PCP - General 12/08/15
[2025-05-14 12:12] VITALS: BMI 29.5
[2025-05-14 12:43] LABS: Microscopic, Urine URINE MICROSCOPIC (MICROSCOPIC)
[2025-05-14 12:47] LABS: Hematocrit 31.2 % (37.0-47.0); Hemoglobin 10.0 g/dL (12.2-16.2); Immature Granulocytes % 0.5 %; Mean Corpuscular HGB Conc 32.1 g/dL (31.8-35.4); Mean Corpuscular Hemoglobin 28.2 pg (27.0-31.2); Mean Corpuscular Volume 87.9 fl (81-99); Nucleated Red Blood Cells % 0 %; Platelet Count 254 K/mm3 (142-424); Red Blood Count 3.55 M/mm3 (4.20-5.40); Red Cell Distribution Width-SD 50.7 fL; White Blood Count 9.7 K/mm3 (4.8-10.8)
[2025-05-14 12:59] LABS: Alanine Aminotransferase 20 U/L (12-78); Albumin Level 4.0 g/dl (3.5-5.0); Albumin/Globulin Ratio 1.4 (1.1-1.8); Alkaline Phosphatase 187 U/L (38-126); Anion Gap 10.0 mEq/L (5-15); Aspartate Amino Transferase 33 U/L (14-36); Bilirubin,Total 0.4 mg/dl (0.2-1.3); Blood Urea Nitrogen 10 mg/dl (7-17); Calcium 9.3 mg/dl (8.4-10.2); Carbon Dioxide 22 mmol/L (22.0-30.0); Chloride 105 mmol/L (98-107); Creatinine Clearance Estimated 127 mL/min (50-200); Creatinine,Serum 0.80 mg/dl (0.52-1.04); Estimated Glomerular Filt Rate 84 ml/min (>60); GFR (African American) 102 ML/MIN (>60); Globulin 2.9 g/dL (1.3-3.2); Glucose 85 mg/dl (74-100); Potassium 4.0 mmoL/L (3.5-5.1); Sodium 133 mmol/L (136-145); Total Protein,Serum 6.9 g/dl (6.3-8.2)
[2025-05-14 13:09] LABS: Bilirubin,Urine Negative (Negative); Color,Urine YELLOW (Yellow); Glucose,Urine (UA) Negative (Negative); Ketones,Urine Negative (Negative); Leukocyte Esterase,Urine 1+ (Negative); PH,Urine 6.0 (5.0-8.5); Protein,Urine Negative (Negative); Specific Gravity, Urine 1.015 (1.005-1.030); Urobilinogen,Urine 0.2 EU/dl (0.2)
[2025-05-14 13:49] LABS: Bacteria,Urine Trace /lpf
== END 2025-05-14 23:59 | disposition home or self-care (01) ==
LOC: PREOP 12:05
PROVIDERS: PCP Internal Medicine Adolescent Medicine; Visit Provider Obstetrics & Gynecology
DX: Z01.812 Encounter for preprocedural laboratory examination (principal)
CPT/HCPCS: 80053; 81001; 85025; 87086

== ENCOUNTER 2025-05-15 09:24 | Outpatient (CLI) | payer MEDICAID, SELFPAY ==
--- OUTSIDE RECORDS SUMMARY | 2022-10-19 03:52 | XMS_ITS | Continuity of Care Document ---
Author Organization [facility] Address [address] [place] [address] Phone Care Team Providers Care Medical Supervisor Name Role Phone Ollie MSN, ASSEMBLIES AND INSTALLATIONS INSPECTOR, Lorenza Unavailable Unavai lable Allergies, Adverse Reactions, [...] Location Reason(s) For Visit Diagnoses Date Provider [facility], [address] [place] [address], [facility], tel:[phone] [facility] No Information Ollie Britt. [address] [place], [place], [id number], . tel:[phone] [facility], [address] [place] [address], [facility], tel:[phone] JORGETHIANA new to establish (chief complaint) Alcohol abuse counseling and surveillance of alcoholicMajor depressive disorder, recurrent, mildGeneralized anxiety disorderEncounter for screening examination for other mental health and behavioral disordersEncounter for screening for diseases of the blood and blood-forming organs and certain disorders involving the immune mechanismADHD predominantly inattentive typeEncounter for screening for other disorder Ollie Lorenza. [address], [place], [id number], [place]. tel:[phone] Family History Family Member Type Diagnosis Age At Onset No Information Payers Payer name Insurance type Covered democrat ID Authoriza tion(s) No Information Social History [...] due Goal Obtain Height, Weight, and B RI. Due on due Goal Hepatitis C Screening. [...] due Goal Obtain Height, Weight, and B RI. Due on due Goal CBC. Due on [...] Due o n due Referral Referred To: [facility] Internal Medicine- Dr. Obrien Ordered: Referrals: Internal Medicine. [facility] Internal Medicine- Dr. Obrien. Location: [facility] Evaluate and treat Appointment date/timeframe: 10/13/2022 ordered History Of Present Illness Encounter Date Complaint History Of Prese nt Illness new to establish German is a 26 yo female here today to establish care. She reports she has not seen a doctor in over 5 years. Previously seen in [place], Dr. Pan. She lives here now. She [...] if she chooses.OBGYN- last pap- she is [id number] full term boyperiods regularDeclines control at this [...] ETOH Instructions Date Instruction Additional Infor carleen Take medications as prescribed. Follow a sleep schedule. Try to engage in 30 minutes of moderate activity daily if tolerated, as exercise has been shown to improve depression symptoms Related to Major depressive disorder, recurrent, mild Discussed stress red uction techniques. Take medications as prescribed. Limit caffeine and nicotine. Try to follow a set sleep schedule. Get daily moderate exercise if able to tolerate. Related to Generalized anxiety disorder Assessments Type Assessment Date No Information
--- OUTSIDE RECORDS SUMMARY | 2025-05-15 09:27 | XMS_ITS | Clinical Summary ---
Author Organization Healthcare Address [address] [place] [address] Care Team Providers Care Contact Center Professional Name Role Phone Armand Morales MD Primary Care Provider [phone] Allergies No known active allergies Medications Vyvanse [...] drink first t waldemar in the morning (EYE-DATA OFFICER) to steady your nerves or to get [...] 02/03/2023 [facility]-Cervical Cancer Screening 2024 [facility]-HPV/Cotest 2024 [id number]-73 Vaccine ( season) 2025 [facility]-Influenza Vaccine (#1) [...] this topic Medical Devices Implanted Type Area Game Technician Device Identifier Shelf Expiration Date Model / Serial / Lot Nail Femoral Left [id number] - [id number] Implanted:Qty: 1 on 02/22/2023 by Ghulam Pulido MD at [facility] Right: [employer] ([facility])-[id number] 12/14/2023 1828-0936S / / [id number] Screw 5.0mm Ti T2 Lock Full Thrd 40mm - [id number] Implanted:Qty: 1 on 02/22/2023 by Ghulam Pulido MD at [facility] Right: [employer] ([facility])-[id number] 8 01/13/2027 1896-5040S / / [id number] Screw 5.0mm T2 Lock Full Thrd 45mm - [id number] Implanted:Qty: 1 on 02/22/2023 by Ghulam Pulido MD at [facility] Right: [employer] ([facility])-[id number] 05/15/2027 1896-5045S / / [id number] Screw 5.0mm Lock Full Thrd 32.5mm - [id number] Implanted:Qty: 1 on 02/22/2023 by Ghulam Pulido MD at [facility] Right: [employer] ([facility])-[id number] 01/13/2027 1896-5032S / / [id number] Screw T2 Locking 37.5mm - [id number] Implanted:Qty: 1 on 02/22/2023 by Ghulam Pulido MD at [facility] Right: [employer] ([employer])-[id number] 8 05/15/2027 1896-5037S / / [id number] Procedures Procedure Name Priority Date/Time Associated Diagnosis [...] ORDERABLES Final Re sult Performing Organization Address [facility] Co de Phone Number SUNQUEST [...] Patient has decision-making capacity? Yes Care Teams Contact Center Professional Relationship Specialty Start Date End Date Armand Morales MD [facility] [phone] PCP - General Internal Medicine 11/04/22
--- OUTSIDE RECORDS SUMMARY | 2025-05-15 09:27 | XMS_ITS | Clinical Summary ---
Author Organization [facility] Address [address] [place] [address] Care Team Providers Care Explosive Operator Grenade Name Role Phone System, Provider Not In [...] to complete this topic Insurance [facility] Care Teams Explosive Operator Grenade Relationship Specialty Start Date End Date System, Provider Not In PCP - General 12/08/15
--- OUTSIDE RECORDS SUMMARY | 2025-05-15 09:27 | XMS_ITS | Clinical Summary ---
Author Organization [facility] lin Address [address] [place] [address] Care Team Providers Care Solar Photovoltaic Crew Lead Name Role Phone Pcp, No Primary Care Provider [phone] Allergies No known active allergies Medications No [...] Adults 18 yrs or above (or HM Modifier)([facility]) 2012 Hepatitis C Virus Infection in Adolescents and Adults: Screening (or Modifier) ([facility]) 2012 SDOH Screening Reminder: Dinora urias for all adults ([facility]) 2012 Tobacco Smoking Cessation: i n Adults excluding Women: Behavioral and Pharmacotherapy Interventions ([facility]) 2012 DTaP/Tdap/Td Vaccines ([facility]) (1 - Tdap) 2013 Cervical Cancer [...] Vaccine Screening: Initial Series and Booster Status ([facility]) ( - 2024- season) 2025 Zoster/Shingles Vaccine Seri es Screening: Adults aged 18+ yrs (or HM Modifiers)([facility] ) (1 of 2) 2044 Pneumococcal Vaccination Scr eening: Pts 0-19 & 19-49 yrs of age ([facility] ) Aged Out No longer eligible based on patient's age to complete this topic Medical Devices Not on file Insurance [facility] Care Teams Solar Photovoltaic Crew Lead Relationship Specialty Start Date End Date Pcp, Maame PCP - General Family Medicine 04/16/22
--- NOTE | 2025-05-15 09:30 | US_ITS ---
PROCEDURE: US OB BIOPHYSICAL PROFILE CLINICAL INDICATION: BPP COMPARISON: US US OB /MATERNAL DETAIL from 01/10/2025 US US OB FOLLOW UP from 03/25/2025 FINDINGS: Transabdominal sonographic images of the uterus were obtained. From her established due date she is 38weeks 4days. The following parameters are obtained: Viable Fetus in the cephalic presentation with a posterolateral placenta grade 2. The cervix measures 2.33 cm in length. Average ultrasound age is 39weeks 0 days Estimated weight 3,712g, 8 lb 3 oz Measurements: heart Rate = 155bpm BPD = 39weeks 0 days, 85 percentile HC = 39weeks 1day, 45 percentile AC = 40weeks 0 days, 93 percentile FL = 37weeks 5days, 32 percent HC/AC is 0.94 FL/BPD is 0.77 FL/AC is 0.2 80 percentile Amniotic fluid index: 11.38cm, MVP 4.95 cm Qualitative AFV:2 Breathing movements: 2 Gross Body Movements: 2 Tone: 2 Biophysical profile score: 8 No obvious anomalies evident.Kidneys, profile, stomach, bladder, four-chamber heart, three-vessel cord appear normal. IMPRESSION: 1. Viable fetus in the cephalic presentation with a posterolateral placenta grade 2. 2. The fluid is within normal limits with an amniotic fluid index 11.38 cm, MVP 4.95 cm. 3. There has been good interval growth with the fetus currently 80th percentile. 4. Biophysical profile is 8/8 with good breathing movement and movement seen. 5. Limited anatomical scan appears normal. Dictated by: Walter Kraus MD 05/16/2025 07:22 Walter Kraus MD in [facility] 05/16/2025 07:22
== END 2025-05-15 23:59 | disposition home or self-care (01) ==
LOC: RAD 09:24
PROVIDERS: PCP Internal Medicine Adolescent Medicine; Visit Provider Obstetrics & Gynecology
DX: O36.63X0 Maternal care for excessive fetal growth, third trimester, not applicable or unspecified (principal); O99.013 Anemia complicating pregnancy, third trimester; D64.9 Anemia, unspecified; Z3A.38 38 weeks gestation of pregnancy
CPT/HCPCS: 76816; 76819